=== PATIENT | male | born 1980 | race Caucasian/White ===

== ENCOUNTER 2017-05-19 11:46 | Emergency (ER) | payer OTHER ==
[~2017-05-19] VITALS: Ht 188 cm; Wt 136.1 kg
== END 2017-05-19 13:32 | disposition home or self-care (01) ==
LOC: ED 11:46
DX: S93.401A Sprain of unspecified ligament of right ankle, initial encounter (principal); F17.200 Nicotine dependence, unspecified, uncomplicated; Z91.048 Other nonmedicinal substance allergy status; W17.89XA Other fall from one level to another, initial encounter
CPT/HCPCS: 73610; 99283